=== PATIENT | female | born 1985 | race Caucasian/White ===

== ENCOUNTER 2021-04-12 14:45 | Day surgery (SDC) | payer MEDICARE, MEDICAID | END 2021-04-12 14:56 | disposition home or self-care (01) | LOC: JP.ACU 14:45 | PROVIDERS: ATTEND Surgery | DX: Z01.812 Encounter for preprocedural laboratory examination (principal); Z20.822 Contact with and (suspected) exposure to COVID-19 | CPT/HCPCS: C9803; U0002 ==

== ENCOUNTER 2021-04-16 10:41 | Day surgery (SDC) | payer MEDICARE, MEDICAID ==
[2021-04-16] MEDS ORDERED: Midazolam 1 MG/ML 2 ML SDV ONE (11:22)
[2021-04-16] MEDS ORDERED: Propofol 200 MG/20 ML SDV ONE (11:22)
[2021-04-16] MEDS ORDERED: fentaNYL 100 MCG/2 ML SDV ONE (11:22)
[2021-04-16] MEDS ORDERED: Sodium Chloride 0.9% 1,000 ML IV SCH (11:30)
[2021-04-16 13:29] VITALS: BP 107/79; PULSE 78
--- NOTE | 2021-04-17 10:37 | OR ---
DATE OF PROCEDURE: 04/16/2021 SURGEON: Lb Lane MD PROCEDURE: Colonoscopy. FINDINGS: 1. Normal colonoscopy. 2. Poor colon prep. COMPLICATIONS: None. HUB LEAD: None. ANESTHESIA: MAC. PREOPERATIVE DIAGNOSIS: Family history of colorectal cancer. POSTOPERATIVE DIAGNOSIS: Family history of colorectal cancer. RISKS: Risks, benefits, alternatives, and limitations including but not limited to infection, bleeding, perforation, false positives and false negatives were explained to the patient and she wished to proceed. PROCEDURE IN DETAIL: The patient was placed in left lateral decubitus position. Digital rectal exam was performed without abnormality. Scope was introduced and advanced atraumatically to the ileocecal valve. A photo was taken of this. Scope was brought back to the ascending, transverse, descending colon, and retroflexed. No evidence of old or new blood. No masses. No polyps. No diverticulosis. No abnormalities on retroflexion. Greater than 8 minutes was spent removing the scope. The prep would be described as poor with approximately 85% of the luminal surface could be seen due to retained solid and liquid stool. The patient tolerated the procedure well. Lb Lane MD /[id number]
== END 2021-04-16 13:45 | disposition home or self-care (01) ==
LOC: JP.SDS 10:41
PROVIDERS: ATTEND Surgery
DX: Z12.11 Encounter for screening for malignant neoplasm of colon (principal); Z80.0 Family history of malignant neoplasm of digestive organs; Z88.8 Allergy status to other drugs, medicaments and biological substances
CPT/HCPCS: G0105; J2250; J2704; J3010; J7030

== ENCOUNTER 2021-12-01 05:51 | Day surgery (SDC) | payer MEDICARE, MEDICAID ==
[2021-12-01] MEDS ORDERED: Lactated Ringers 1,000 ML IV SCH (06:30)
[2021-12-01] MEDS ORDERED: Bupivacaine 0.5% 30 ML SDV ONE (06:30)
[2021-12-01] MEDS ORDERED: Nozin Nasal Sanitizer NASBOTH ONE (06:30)
[2021-12-01] MEDS ORDERED: Midazolam 1 MG/ML 2 ML SDV ONE (07:25)
[2021-12-01] MEDS ORDERED: Propofol 200 MG/20 ML SDV ONE ×2 (07:25→08:06)
[2021-12-01] MEDS ORDERED: fentaNYL 100 MCG/2 ML SDV ONE (07:25)
[2021-12-01] MEDS ORDERED: Lidocaine 0.5% 50 ML SDV ONE (07:25)
[2021-12-01] MEDS ORDERED: Clindamycin Phosphate 900 MG in Sodium Chloride 0.9% 100 ML IV ONE (07:30)
[2021-12-01 09:54] VITALS: BP 140/82; PULSE 96
== END 2021-12-01 09:55 | disposition home or self-care (01) ==
LOC: JP.SDS 05:51
PROVIDERS: ATTEND Specialist
DX: G56.02 Carpal tunnel syndrome, left upper limb (principal); Z88.8 Allergy status to other drugs, medicaments and biological substances; Z98.890 Other specified postprocedural states
CPT/HCPCS: 36415; 80048; 81025; 85027; A9270-GY; J2250; J2704; J3010; J3490; J7120

== ENCOUNTER 2022-09-24 10:31 | Emergency (ER) | payer MEDICARE, MEDICAID ==
[2022-09-24 10:52] VITALS: BP 151/95; PULSE 78
[2022-09-24] MEDS ORDERED: Ondansetron 4 MG Tab.DIS PO ONE (11:10)
[2022-09-24] MEDS ORDERED: Ketorolac 30 MG/ML SDV IM ONE (11:10)
[2022-09-24] MEDS ORDERED: diphenhydrAMINE 50 MG/ML SDV IM ONE (11:11)
[2022-09-24] MEDS ORDERED: Prochlorperazine 10 MG/2 ML SDV IM ONE (12:44)
== END 2022-09-24 13:03 | disposition home or self-care (01) ==
LOC: JP.ED 10:31
DX: N20.0 Calculus of kidney (principal); Z88.6 Allergy status to analgesic agent; Z88.1 Allergy status to other antibiotic agents
CPT/HCPCS: 74176; 81001; 87086; 96372; 99284; J0780; J1200; J1885; Q0162